=== PATIENT | male | born 1950 | race Caucasian/White ===

== ENCOUNTER 2017-02-08 06:00 | Day surgery (SDC) | payer OTHER ==
[~2017-02-08] VITALS: Ht 177.8 cm; Wt 62.6 kg
--- NOTE | ~2017-02-08 | O ---
[facility] [place] [address] OPERATIVE REPORT Name: FABIO WONG Alex Room #: 150-5 [facility].#: [id number] Admission: 02/08/17 Attend Phys: Eric Agee MD Discharge: Date of : 50 Report #: [id number] THIS REPORT FOR: //name// CC: Bony Agee DATE OF SERVICE: 02/08/2017 PREOPERATIVE DIAGNOSIS: Left knee degenerative medial meniscus tear. POSTOPERATIVE DIAGNOSIS: 1. Left knee degenerative medial meniscus tear. 2. Inner margin fraying lateral meniscus. 3. 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 4. 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 PROCEDURE: Left knee arthroscopy with partial medial and lateral meniscectomy. SURGEON: Eric Agee MD. [employer]SEM[employer]ER [employer]: Maggie Bruno PA-C. ANESTHESIA: LMA. TOURNIQUET TIME: Approximately 18 minutes. COMPLICATIONS: None. SPECIMENS: None. CONDITION UPON LEAVING THE OPERATING ROOM: Stable. INDICATIONS FOR PROCEDURE: The patient is a 66-year-old gentleman who has had medial-sided left knee pain. He had an MRI scan shown to have degenerative tear of the posterior horn medial meniscus as well as edema in his proximal tibial plateau. After discussion with him, he elected for left knee arthroscopy with partial medial meniscectomy and debridement as needed. DESCRIPTION OF PROCEDURE: Risks, benefits, alternatives, complications were discussed in detail with the patient including but not limited to risk of anesthesia, risk of damage to nerves, arteries, blood vessels, risk for infection, bleeding, risk for continued knee pain and need for reoperation. Informed consent was obtained from the patient. The left knee was appropriately marked in the preoperative holding area. IV clindamycin was given for preoperative antibiotics. He was brought to the operating room and placed in supine position on operating room table. LMA anesthesia was induced without [facility] [address] [address] OPERATIVE REPORT Name: FABIO WONG Room #: 150-5 [facility]#: [id number] Admission: 02/08/17 Attend Phys: Eric Agee MD Discharge: Date of : 50 Report #: [id number] complication. Tourniquet was placed on the left thigh. Left lower extremity was prepped and draped in normal sterile fashion. Timeout was performed properly identifying the patient, procedure as well as the instrumentation. All in the operating room were in agreement. Left lower extremity was exsanguinated, tourniquet was inflated. Tourniquet time was approximately 18 minutes. Standard anterolateral portal was established with an 11 blade through the skin. Arthroscope was introduced into the patellofemoral compartment, diagnostic arthroscopy was undertaken. Patellofemoral compartment was visualized and found to be without pathology. Medial gutter was visualized and found to be without pathology. Medial compartment was visualized and medial portal was established under arthroscopic visualization. Probe was introduced into the medial compartment. There was a degenerative complex tear of posterior horn medial meniscus. This was trimmed back with an arthroscopic biter and smoothed back with an arthroscopic shaver. In addition the medial femoral condyle demonstrating grade 3 chondromalacia, there was an area of grade 4 chondromalacia on the posterior medial tibial plateau. Notch was visualized and found to have an intact anterior cruciate ligament. Lateral compartment was visualized and found to have degenerative inner margin fraying of the lateral meniscus. This was smoothed back with an oscillating shaver. Lateral gutter was visualized and found to be without pathology. Scope was placed back in the patellofemoral compartment. There was some grade 3 chondromalacia of the trochlear groove. All fluid was then flushed and drained from the knee. Knee was injected with 10 mL of 0.5% Marcaine and this was closed with 3-0 nylon. Soft dressing of Adaptic, 4 x 4, Webril, Zack wrap were applied. The patient tolerated this procedure well and went to the recovery room under the care of anesthesia postoperatively. By: [id number] Eric Agee MD /courtney
[~2017-02-08 06:00] MED LIST: COUMADIN 1MG TAB1 M1 PO; ENOXAPARIN60 MG/0.1 SUBQ; FOSAMAX 70 MG T70 MG PO; NUCYNTA50 MG PO; PROTONIX40 M1 PO; RANITIDINE HCL300 M1 PO; SANDOSTATI50 MCG/1 M IV; TOPAMAX 100 MG100 MG PO; TPN ELECTROLYTE20 M1 IV; URSODIOL250 MG PO; VITAMIN D 5050000 I1 PO; ZENPEP DR 15,01 EACH PO
[2017-02-08 07:52] VITALS: BP 125/69
[2017-02-08 08:03] LABS: INR 1.1; PROTIME 10.9 Seconds (9.3-11.4)
[2017-02-08 08:09] LABS: CALCIUM 8.9 mg/dL (8.5-10.1); CREATININE 1.4 mg/dL (0.7-1.3); POTASSIUM 4.2 mmol/L (3.5-5.1)
[2017-02-08 08:20] LABS: ALBUMIN 2.8 g/dL (3.4-5.0)
[2017-02-08 10:19] VITALS: BP 125/69
== END 2017-02-08 10:45 | disposition home or self-care (01) ==
LOC: TBA 06:00 → OR 06:00 → TBA 06:02 → OR 08:13
PROVIDERS: Anesthesiology; Orthopaedic Surgery
DX: M23.222 Derangement of posterior horn of medial meniscus due to old tear or injury, left knee (principal); M23.362 Other meniscus derangements, other lateral meniscus, left knee; M94.262 Chondromalacia, left knee; Z88.0 Allergy status to penicillin; Z88.2 Allergy status to sulfonamides; Z88.6 Allergy status to analgesic agent; Z88.1 Allergy status to other antibiotic agents; Z79.01 Long term (current) use of anticoagulants
CPT/HCPCS: 50010; 50101; 50405; 50992; 51038; 54170; 56526; 62110; 62900; 70005